=== PATIENT | female | born 1995 | race Caucasian/White ===

== ENCOUNTER 2022-03-17 09:27 | Emergency (ER) | payer SELFPAY | END 2022-03-17 11:56 | disposition home or self-care (01) | LOC: MADERS 09:27 | DX: U07.1 COVID-19 (principal); J06.9 Acute upper respiratory infection, unspecified; H66.92 Otitis media, unspecified, left ear | CPT/HCPCS: 87804; 99283; U0003; U0005 ==

== ENCOUNTER 2022-11-30 10:35 | Emergency (ER) | payer SELFPAY | END 2022-11-30 11:34 | disposition home or self-care (01) | LOC: MADERS 10:35 | DX: K03.81 Cracked tooth (principal) | CPT/HCPCS: 99282 ==

== ENCOUNTER 2024-04-08 16:55 | Emergency (ER) | payer SELFPAY ==
[~2024-04-08 16:55] MED LIST: Iopamidol 370 76% 100 ML VIAL ONE
[2024-04-08] MEDS ORDERED: Ondansetron PF 4 MG/2 ML Vial ONE (18:22)
[2024-04-08] MEDS ORDERED: Morphine 4 MG/ML VIAL ONE (18:22)
[2024-04-08] MEDS ORDERED: Sodium Chloride 0.9% 1,000 ML ONE (18:22)
[2024-04-08] MEDS ORDERED: Ketorolac Tromethamine 30 MG (1 mL) VIAL ONE (18:22)
[2024-04-08] MEDS ORDERED: Famotidine/PF 20 mg/2ml Vial ONE (18:23)
[2024-04-08 18:43] LABS: Bilirubin Negative (Negative); Blood, Urine Negative (Negative); Clarity Clear (Clear); Glucose, Urine (Dipstick) Negative (Negative); Ketone, Urine Negative (Negative); Leukocyte Negative (Negative); Nitrite Negative (Negative); Protein, Urine (Dipstick) Negative (Neg-Trace); Urobilinogen 0.2 mg/dL (Less than 2)
[2024-04-08 18:52] LABS: CAUTI Indications for Culture Dysuria,urgency,freq; RBC/HPF 0-3 HPF (0-3); Squamous Epithelial 0-3 HPF (0-3); WBC/HPF 0-3 HPF (0-3)
[2024-04-08 18:53] LABS: Amphetamine Not Detected (NotDetected); Barbiturates Screen Not Detected (NotDetected); Benzodiazepine Screen Not Detected (NotDetected); Cocaine Metabolite Screen Not Detected (NotDetected); Methadone Not Detected (NotDetected); Methamphetamine Not Detected (NotDetected); Opiate Screen Not Detected (NotDetected); Oxycodone Screen Not Detected (NotDetected); Phencyclidine (PCP) Not Detected (NotDetected); Pregnancy Test - Urine (BHCG) Negative (Negative); Pregu Control Bar Appear? YES (CONTROL BAR); Specific Gravity 1.023 (1.002-1.036); THC/Cannabinoid Screen Not Detected (NotDetected); Tricyclic Screen Not Detected (NotDetected); Urine Culture Reflex No No
[2024-04-08 18:54] LABS: Pregu Control Background? CLEAR/WHITE (CLR/WHITE)
[2024-04-08 19:03] LABS: ALT (SGPT) 14 U/L (Less than 34); AST (SGOT) 17 U/L (11-34); Albumin 4.5 g/dL (3.1-4.5); Alkaline Phosphatase 105 U/L (40-110); Anion Gap 14 mmol/L (10-20); BUN (Urea Nitrogen) 12 mg/dL (7.0-18.7); Bilirubin, Total 0.4 mg/dL (0.3-1.2); Calc. Creatinine Clearance 0 mL/min (70-130); Calcium 9.8 mg/dL (7.8-10.44); Carbon Dioxide 24 mmol/L (22-29); Chloride 104 mmol/L (98-107); Estimated GFR 88; Globulin 3.9 g/dL (2.4-3.5); Glucose 99 mg/dL (70-105); Lipase 40 U/L (8-78); Potassium 3.9 mmol/L (3.5-5.1); Protein, Total 8.4 g/dL (6.0-8.3); Sodium 138 mmol/L (136-145)
[2024-04-08 19:36] LABS: #Basophils 0.2 thou/uL (0.0-0.2); #Eosinophils 0.1 thou/uL (0.0-0.7); #Lymphocytes 3.3 thou/uL (1.20-3.40); #Monocytes 0.7 thou/uL (0.11-0.59); #Neutrophils 5.1 thou/uL (1.40-6.50); %Basophils 1.7 % (0.0-1.0); %Eosinophils 1.1 % (0.0-10.0); %Monocytes 7.1 % (0.0-10.0); Hematocrit 41.5 % (36.0-47.0); Hemoglobin 11.8 g/dL (12.0-16.0); Mean Corpuscular HGB CONC 28.6 g/dL (32.0-36.0); Mean Corpuscular Hemoglobin 18.7 pg (27.0-31.0); Mean Corpuscular Volume 65.3 fl (78.0-98.0); Mean Platelet Volume 11.2 fL (7.4-10.4); Platelet Count 297 10x3/uL (130-400); RBC Distribution Width 15.5 % (11.5-14.5); Red Blood Cell (RBC) Count 6.35 mill/uL (4.20-5.40); White Blood Cell (WBC) Count 9.3 10x3/uL (4.8-10.8)
[2024-04-08 19:37] LABS: Anisocytosis SLIGHT = 6-15 cells (100X) (0-5/hpf); Microcytosis MARKED = >30 cells (100X) (0-5/hpf); Poikilocytosis SLIGHT = 6-15 cells (100X) (0-5/hpf)
[2024-04-08 19:38] LABS: Hypochromia MODERATE=16-30 cells (100X) (0-5/hpf); Platelet Adequacy Comment Appears Adequate
== END 2024-04-08 20:32 | disposition home or self-care (01) ==
LOC: MADERS 16:55
DX: K80.50 Calculus of bile duct without cholangitis or cholecystitis without obstruction (principal); E66.9 Obesity, unspecified
CPT/HCPCS: 74177; 80053; 80306; 81001; 81025; 83605; 83690; 85025; 96361; 96374; 96375; J1885; J2270; J2405; J3490; J7030; Q9967